=== PATIENT | female | born 1975 | race American Indian/Alaskan Native ===

== ENCOUNTER 2017-12-18 14:43 | Emergency (ER) | payer OTHER ==
[2017-12-18] MEDS ORDERED: ASPIRIN PO ONE (15:03)
[2017-12-18] MEDS ORDERED: CATAPRES ONE (15:07)
[2017-12-18] MEDS ORDERED: CATAPRES PO ONE (15:13)
[2017-12-18 15:46] LABS: Basophils % (Auto) 0.3 % (0.0-1.8); Eosinophils # (Auto) 0.3 K/mm3 (0.0-0.4); Eosinophils % (Auto) 5.8 % (0.0-4.3); Lymphocytes # (Auto) 1.7 K/mm3 (1.2-5.4); Lymphocytes % (Auto) 32.1 % (13.4-35.0); Mean Corpuscular HGB Conc 31 % (30-34); Mean Corpuscular Volume 76 fl (79-97); Monocytes # (Auto) 0.4 K/mm3 (0.0-0.8); Monocytes % (Auto) 6.8 % (0.0-7.3); Platelet Count 235 K/mm3 (140-440); Red Blood Count 4.75 M/mm3 (3.65-5.03); Red Cell Distribution Width 18.6 % (13.2-15.2)
--- NOTE | 2017-12-18 15:50 | Emergency Department Report ---
ED General Adult HPI - General Chief complaint: High BP Stated complaint: HB Time Seen by Provider: 12/18/17 15:40 Source: patient Mode of arrival: Ambulatory Limitations: No Limitations - History of Present Illness Initial comments: Patient is a 42 years old female with history of hypertension. Patient presented to the ER complaining of headache and high blood pressure. Patient stated that she is out of her blood pressure medication for a week now. Patient stated that she is taking losartan 100 mg, hydrochlorothiazide 25 mg and clonidine 0.2 mg twice a day and Lasix 20 mg daily. Patient denied any weakness, numbness or tingling sensation. No neck pain, no bowel or bladder incontinence. - Related Data Allergies Allergy/AdvReac Type Severity Reaction Status Date / Time No Known Allergies Allergy Unverified 12/18/17 15:02 ED Review of Systems ROS: Stated complaint: HB Other details as noted in HPI Comment: All other systems reviewed and negative Constitutional: denies: chills, fever Cardiovascular: denies: chest pain, palpitations, dyspnea on exertion Gastrointestinal: denies: abdominal pain, nausea, vomiting Neurological: headache. denies: weakness, numbness, paresthesias, confusion, abnormal gait, vertigo ED Past Medical Hx - Past Medical History Hx Hypertension: Yes - Social History Smoking Status: Never Smoker Substance Use Type: Alcohol ED Physical Exam - General Limitations: No Limitations General appearance: alert, in no apparent distress - Head Head exam: Present: atraumatic, normocephalic, normal inspection - Eye Eye exam: Present: normal appearance, PERRL - ENT ENT exam: Present: normal exam, normal orophraynx, mucous membranes moist - Neck Neck exam: Present: normal inspection, full ROM. Absent: tenderness, meningismus, lymphadenopathy, thyromegaly - Respiratory Respiratory exam: Present: normal lung sounds bilaterally. Absent: respiratory distress, wheezes, rales, rhonchi - Cardiovascular Cardiovascular Exam: Present: regular rate, normal rhythm, normal heart sounds - GI/Abdominal GI/Abdominal exam: Present: soft, normal bowel sounds. Absent: distended, tenderness, guarding, rebound, rigid, organomegaly, mass, bruit, pulsatile mass , hernia - Extremities Exam Extremities exam: Present: normal inspection, full ROM, normal capillary refill. Absent: pedal edema, calf tenderness - Back Exam Back exam: Present: normal inspection, full ROM. Absent: tenderness, CVA tenderness (R), CVA tenderness (L), muscle spasm, paraspinal tenderness, vertebral tenderness, rash noted - Neurological Exam Neurological exam: Present: alert, oriented X3, CN II-XII intact, normal gait, reflexes normal - Skin Skin exam: Present: warm, intact, normal color ED Course Vital Signs 12/18/17 12/18/17 12/18/17 15:00 15:14 15:44 Temperature 98.2 F Pulse Rate 96 H 96 H Respiratory 18 Rate Blood Pressure 224/158 224/158 O2 Sat by Pulse 98 93 Oximetry 12/18/17 12/18/17 12/18/17 15:46 16:04 16:16 Temperature Pulse Rate 85 80 Respiratory 28 H 28 H Rate Blood Pressure 238/155 223/149 244/148 O2 Sat by Pulse 92 94 95 Oximetry 12/18/17 12/18/17 12/18/17 16:25 16:31 16:45 Temperature Pulse Rate 78 73 71 Respiratory 25 H 24 Rate Blood Pressure 244/148 244/148 O2 Sat by Pulse Oximetry ED Medical Decision Making - Lab Data Result diagrams: 12/18/17 15:25 12/18/17 15:25 - EKG Data -: EKG Interpreted by Dc EKG shows normal: sinus rhythm Rate: normal - EKG Data Interpretation: no acute changes - Radiology Data Radiology results: report reviewed Referring Physician: KAYODE TORO Patient Name: STEPHANIE SWANSON Date of : 1975 Sex: Female Report Date: 2017-12-18 Report Status: Finalized [place] [address] Cat Scan Report Signed Patient: STEPHANIE SWANSON MR#: [id number] : 1975 Acct:[id number] Age/Sex: 42 / F ADM Date: 12/18/17 Loc: ED Attending Dr: Ordering Physician: KAYODE TORO Date of Service: 12/18/17 Procedure(s): CT head/brain wo con Accession Number(s): [id number] cc: KAYODE TORO FINAL REPORT EXAM: CT HEAD/BRAIN WO CON HISTORY: headache, high BP. TECHNIQUE: Standard unenhanced CT of the head at 5.0 millimeter axial increments. PRIORS: None. FINDINGS: The ventricular system is normal in size and configuration. There is no evidence for parenchymal volume loss. There is no evidence for mass lesion, mass effect, midline shift, acute intracranial hemorrhage, or acute ischemia/ infarction. No evidence for acute skull fracture is seen. No abnormality in the overlying scalp soft tissues is seen. Visualized paranasal sinuses are clear. IMPRESSION: Negative CT of the head. No acute intracranial process noted. Transcribed By: [facility] Dictated By: AMY KENDRICK MD Electronically Authenticated By: AMY KENDRICK MD Signed Date/Time: 12/18/171757 DD/ 57 TD/TT: 12/18/171757 - Medical Decision Making Patient stated that her headache is completely resolved. Blood pressure is down. Patient still denying any weakness, numbness or tingling sensation. CT brain is negative for acute finding. Critical care attestation.: If time is entered above; I have spent that time in minutes in the direct care of this critically ill patient, excluding procedure time. ED Disposition Clinical Impression: Malignant hypertension, Headache Disposition: DC-01 TO HOME OR SELFCARE Is pt being admited?: No Condition: Stable Instructions: Hypertension (ED)
[2017-12-18 16:17] LABS: BUN/Creatinine Ratio 20; Blood Urea Nitrogen 18 mg/dL (7-17); Calcium 9.2 mg/dL (8.4-10.2); Hemolysis Index 1
[2017-12-18] MEDS ORDERED: NORMODYNE IV ONE (16:17)
[2017-12-18 16:20] LABS: Hemoglobin 10.9 gm/dl (10.1-14.3)
[2017-12-18 16:21] LABS: Hematocrit 35.8 % (30.3-42.9); Mean Corpuscular Hemoglobin 23 pg (28-32)
[2017-12-18 16:35] LABS: Bacteria,Urine 1+ /HPF (Negative); Bilirubin,Urine NEG (Negative); Blood,Urine NEG (Negative); Color,Urine Yellow (Yellow); Urobilinogen,Urine < 2.0 mg/dL (<2.0)
[2017-12-18 16:37] LABS: HCG Qualitative,Urine Negative (Negative)
--- NOTE | 2017-12-18 18:06 | Cat Scan Report ---
FINAL REPORT EXAM: CT HEAD/BRAIN WO CON HISTORY: headache, high BP. TECHNIQUE: Standard unenhanced CT of the head at 5.0 millimeter axial increments. PRIORS: None. FINDINGS: The ventricular system is normal in size and configuration. There is no evidence for parenchymal volume loss. There is no evidence for mass lesion, mass effect, midline shift, acute intracranial hemorrhage, or acute ischemia/ infarction. No evidence for acute skull fracture is seen. No abnormality in the overlying scalp soft tissues is seen. Visualized paranasal sinuses are clear. IMPRESSION: Negative CT of the head. No acute intracranial process noted.
[2017-12-18 19:54] VITALS: BP 178/106
== END 2017-12-18 19:10 | disposition home or self-care (01) ==
LOC: ED 14:43
DX: I10 Essential (primary) hypertension (principal); R51 Headache
CPT/HCPCS: 36415; 70450; 80048; 81001; 81025; 84484; 85025; 93005; 93010; 96374